=== PATIENT | female | born 1940 | race Caucasian/White ===

== ENCOUNTER → 2016-11-09 | Outpatient (CLI) | payer MEDICARE, OTHER ==
--- NOTE | ~2016-11-09 | PUL ---
PATIENT'S NAME: ARACELY MASCORRONA Charles [facility] AGE: 75 Y [address] ROOM: [place] [address] LOCATION: [facility] ADMIT DATE: 11/09/2016 Pulmonary DISCHARGE DATE: FAMILY PHYSICIAN: Dell Doan MD ATTENDING PHYSICIAN: GERDA BAILEY NAME OF PROCEDURE: Pulmonary Function Test and Methacholine Challenge DATE OF PROCEDURE: November 09, 2016 TECH: CARLOS ALBERTO Tavarez REASON FOR EXAM: Cough RESULTS: 1. FVC was 2.55 liters which is 98% of predicted and normal, FEV1 was 2.05 liters which is 106% of predicted and normal, and FEV1/FVC was 81% and normal. The flow volume curve did not reveal any significant airflow limitation. After bronchodilator administration FVC increased to 2.59 liters which is a 2% increase and FEV1 increased to 2.06 liters which is a less than 1% increase. FEV1/FVC was 79%. 2. DLCO was 11.9 with an adjusted DLCO of 12.3, which is 61% of predicted and normal. 3. Total lung capacity was 4.28 liters which is 98% of predicted and normal, and residual volume was 1.54 liters which is 85% of predicted and normal. 4. Methacholine challenge. The patient was administered increasingly higher concentration of methacholine solution. Her FEV1 dropped by 16% at level four and by 12% at level five which is the maximum concentration allowed. She experienced chest heaviness and tightness with severe cough at level four. She had a good recovery after bronchodilator administration. PHYSICIAN INTERPRETATION: The patient has no airflow limitation and no significant bronchodilator response. Her diffusion capacity is normal. There is no evidence of restrictive lung disease. She had a negative methacholine challenge test. However, the patient had significant symptoms at high levels of methacholine solution. Clinical correlation is advised. MD TERRA VERDUZCO/luis manuel PAT[facility]'S [facility]: [facility] [place] AGE: 75 Y [address] ROOM: [place] [address] LOCATION: [facility] ADMIT DATE: 11/09/2016 Pulmonary DISCHARGE DATE: FAMILY PHYSICIAN: Dell Doan MD ATTENDING PHYSICIAN: GERDA BAILEY /[id number] dtt: 11/11/16 1403 , GERDA BAILEY dtd: 11/11/16 1114
== END | disposition disaster alternative care site (69) ==
LOC: GRTH 14:59
DX: R05 Cough (principal)
CPT/HCPCS: J7674

== ENCOUNTER → 2017-04-06 | Outpatient (CLI) | payer MEDICARE, OTHER ==
[2017-04-06 16:00] LABS: CPK 58 IU/L (21-215)
== END ==
LOC: LGSMG 15:43
PROVIDERS: Internal Medicine
DX: R06.02 Shortness of breath (principal)

== ENCOUNTER → 2017-04-13 | Outpatient (CLI) | payer MEDICARE, OTHER ==
--- NOTE | ~2017-04-13 | ESTC ---
Cardiac Perfusion Imaging Demographics Patient Name SUBHA Soto Gender Female Patient Number [id number] Race Visit Number [id number] Ethnicity Corporate ID Room Number Accession Number [id number] Height 62 inches Date of 1940 Weight 180 pounds Interpreting Celestino Meza Date of study 04/13/2017 Physician Supervising /CARLOP Celestino Meza NM Technologist Juana Adams MD Ordering Physician Mauricio Garcia MD Stress garage door technician Stress ECG Reading Celestino Meza Nurse Janina Fallon RN Physician Procedure Admit Source:Other. Procedure Type: Nuclear Stress Test:Pharmacological, Lexiscan, Cardiolite Stress Test Procedure Start time: 04/13/2017 09:20 Indications: Shortness of Breath with Exertion. Risk Factors The patient risk factors include:hypercholesterolemia, hypertension, family history of premature CAD and dyslipidemia. Conclusions Impression ECG portion of lexiscan stress test is clinically negative for ischemia by diagnostic criteria. Myocardial perfusion imaging is normal. Calculated LVEF is 80% and TID ratio is 1.09. Overall left ventricular systolic function was normal without regional wall motion abnormalities. Stress Protocols Resting ECG NSR Pre-stress physical exam: Patient assessed by Dr. Verduzoc prior to testing. Peak HR:91 bpm HR/BP product:[id number] Peak BP:165/61 mmHg Predicted HR: 145 bpm % of predicted HR: 63 Test duration:08:00 min Test duration: 08:00 min Reason for termination:Infusion complete ECG Findings No ECG changes suggestive of ischemia. Arrhythmias No rhythm abnormality. Symptoms Nausea. Stress Interpretation Appropriate hemodynamic response to Lexiscan. No significant ST-T wave changes with Lexiscan. ECG portion is negative for ischemia by diagnostic criteria. Imaging Results Applied corrections - Motion correction applied High risk findings Summed scores - Summed stress score: 4 - Summed rest score: 9 - Summed difference score: -5 Stress ejection Ejection fraction:80 % EDV :69 ml ESV :14 ml Stroke volume :55 ml LV mass :97 gr Imaging Protocols Rest Stress Isotope:Tc99m Sestamibi IV Isotope: Tc99m Sestamibi IV Isotope dose:14.4 mCi Isotope dose:42.8 mCi Date:04/13/2017 08:15 Date:04/13/2017 09:54 Technique: SPECT Technique: Gated Supine SPECT Supine Scan Time:45-60 minutes post Scan Time:45-60 minutes post injection injection Procedure Medications - Regadenoson (Lexiscan) 0.4 mg IV over 10-15 sec. I.V. 0.4 mg. Medications administered per verbal order and read back to physician prior to administration. Medical History Admission Data Admission date: 04/13/2017 Admission Time: 07:03 Hospital Status: Outpatient. Signatures dtt: TIM VERDUZCO dtd: 04/13/17 0920 Physician Self Edit
== END | disposition disaster alternative care site (69) ==
LOC: GRAD 07:03
DX: R61 Generalized hyperhidrosis (principal); R06.02 Shortness of breath; E78.00 Pure hypercholesterolemia, unspecified; I10 Essential (primary) hypertension; E78.5 Hyperlipidemia, unspecified; Z82.49 Family history of ischemic heart disease and other diseases of the circulatory system
CPT/HCPCS: A9500; J0280; J2785